=== PATIENT | female | born 1935 | race Caucasian/White ===

== ENCOUNTER 2023-02-06 06:27 | Inpatient (IN) | payer OTHER ==
[2023-02-06 06:58] LABS: #Eosinphils 0.2 thou/uL (0.0-0.7); #Monocytes 0.5 thou/uL (0.11-0.59); %Basophils 0.8 % (0.0-1.0); %Eosinophils 3.1 % (0.0-10.0); %Lymphocytes 26.6 % (21.0-51.0); %Neutrophils 59.1 % (42.0-75.0); Hematocrit 36.4 % (36.0-47.0); Hemoglobin 12.4 g/dL (12.0-16.0); Mean Corpuscular HGB CONC 34.1 g/dL (32.0-36.0); Mean Corpuscular Hemoglobin 32.7 pg (27.0-31.0); Platelet Count 185 10x3/uL (130-400); RBC Distribution Width 12.1 % (11.5-14.5); Red Blood Cell (RBC) Count 3.79 mill/uL (4.20-5.40); White Blood Cell (WBC) Count 5.1 10x3/uL (4.8-10.8)
[2023-02-06] MEDS ORDERED: fentaNYL 50 mcg/mL 1 mL Vial ONE ×4 (07:17→11:40)
[2023-02-06] MEDS ORDERED: Ondansetron PF 4 MG/2 ML Vial ONE ×3 (07:18→08:58)
[2023-02-06 07:23] LABS: ALT (SGPT) Less than 7 U/L (8-55); AST (SGOT) 13 U/L (5-34); Albumin 4.3 g/dL (3.4-4.8); Alkaline Phosphatase 74 U/L (40-110); Anion Gap 12 mmol/L (10-20); BUN (Urea Nitrogen) 11 mg/dL (9.8-20.1); Bilirubin, Total 0.5 mg/dL (0.2-1.2); Calc. Creatinine Clearance 0 mL/min (70-130); Calcium 10.1 mg/dL (7.8-10.44); Carbon Dioxide 28 mmol/L (23-31); Chloride 102 mmol/L (98-107); Estimated GFR 59; Globulin 2.1 g/dL (2.4-3.5); Glucose 223 mg/dL (83-110); Potassium 3.7 mmol/L (3.5-5.1); Protein, Total 6.4 g/dL (5.8-8.1); Sodium 138 mmol/L (136-145)
[2023-02-06 07:27] LABS: Troponin I Less than 0.010 ng/mL (< 0.028)
[2023-02-06 07:34] LABS: INR-International Normal Ratio 0.9; PTT 23.3 sec (22.9-36.1)
[2023-02-06] MEDS ORDERED: Ketorolac Tromethamine 30 MG/ML VIAL ONE (08:26)
[2023-02-06] MEDS ORDERED: CEFAZOLIN 2 GM in Sodium Chloride 0.9% 100 ML IVPB SCH (08:30)
[2023-02-06] MEDS ORDERED: fentaNYL PF 100 MCG/2 ML SYRINGE ONE (08:35)
[2023-02-06] MEDS ORDERED: Phenylephrine 10 MG/ML VIAL ONE (08:35)
[2023-02-06] MEDS ORDERED: Morphine 2 MG/ML VIAL ONE (08:44)
[2023-02-06] MEDS ORDERED: Sodium Chloride 0.9% 100 ML ONE (09:05)
[2023-02-06] MEDS ORDERED: CEFAZOLIN 2 GM VIAL ONE (09:05)
[2023-02-06] MEDS ORDERED: Lidocaine 1% PF 5 ML VIAL ONE (09:42)
[2023-02-06] MEDS ORDERED: PROPOFOL 200 MG/20 ML VIAL ONE (09:42)
[2023-02-06] MEDS ORDERED: ePHEDrine Sulfate 50 MG/10 ML VIAL ONE (09:42)
[2023-02-06] MEDS ORDERED: PHENYLEPHRINE-NS 100 MCG/ML 10 ML SYRINGE ONE (09:42)
[2023-02-06] MEDS ORDERED: Ondansetron HCl/PF 4 MG/2 ML Vial IVP PRN (10:36)
[2023-02-06] MEDS ORDERED: Promethazine HCl 25 MG/ML VIAL IM PRN (10:36)
[2023-02-06] MEDS ORDERED: Morphine 2 MG/ML VIAL SLOW IVP PRN (13:06)
[2023-02-06] MEDS ORDERED: Ondansetron ODT 4 MG TAB PO PRN (13:06)
[2023-02-06] MEDS ORDERED: Ipratropium/Albuterol 3 ML NEB NEB PRN (13:06)
[2023-02-06] MEDS ORDERED: TETANUS, DIPHTHERIA TOX,ADULT (TDVAX) 0.5 ML VIAL IM ONE (13:06)
[2023-02-06] MEDS ORDERED: Acetaminophen 325 MG TAB PO SCH (13:30)
[2023-02-06] MEDS: traMADol HCl 50 MG TAB PO PRN ×2 (13:53→21:58)
[2023-02-06] MEDS: CEFAZOLIN 2 GM in Sodium Chloride 0.9% 100 ML IVPB SCH ×2 (13:55→22:00)
[2023-02-06] MEDS: Acetaminophen 325 MG TAB PO SCH (17:06)
[2023-02-06] MEDS ORDERED: Acetaminophen 325 MG TAB ONE (17:10)
[2023-02-06 20:14] LABS: Bacteria/HPF None Seen HPF (None Seen); Bilirubin Negative (Negative); Blood, Urine Negative (Negative); CAUTI Indications for Culture Immunosuppressed; Calcium Oxalate Crystals 2+ HPF (None Seen); Clarity Clear (Clear); Glucose, Urine (Dipstick) 200 mg/dL (Negative); Ketone, Urine 20 mg/dL (Negative); Leukocyte Negative Leu/uL (Negative); Nitrite Negative (Negative); Protein, Urine (Dipstick) 50 mg/dL (Neg-Trace); RBC/HPF 0-3 HPF (0-3); Specific Gravity, Urine 1.032 (1.002-1.036); Squamous Epithelial 0-3 HPF (0-3); Urobilinogen Normal mg/dL (Less than 2); pH, Urine 5.5 (5.0-9.0)
[2023-02-06 20:19] LABS: Urine Culture Reflex Yes Yes
[2023-02-07] MEDS: Acetaminophen 325 MG TAB PO SCH ×2 (00:06→06:01)
[2023-02-07 04:35] LABS: #Monocytes 1.3 thou/uL (0.11-0.59); #Neutrophils 8.1 thou/uL (1.40-6.50); %Basophils 0.4 % (0.0-1.0); %Eosinophils 0.1 % (0.0-10.0); %Monocytes 11.8 % (0.0-10.0); %Neutrophils 73.3 % (42.0-75.0); Mean Corpuscular HGB CONC 32.7 g/dL (32.0-36.0); Mean Corpuscular Hemoglobin 32.6 pg (27.0-31.0); Mean Platelet Volume 10.5 fL (7.4-10.4); Platelet Count 175 10x3/uL (130-400); RBC Distribution Width 12.8 % (11.5-14.5); Red Blood Cell (RBC) Count 2.58 mill/uL (4.20-5.40)
[2023-02-07 04:41] LABS: Hematocrit 25.7 % (36.0-47.0); Mean Corpuscular Volume 99.6 fl (78.0-98.0)
[2023-02-07 04:42] LABS: Hemoglobin 8.4 g/dL (12.0-16.0)
[2023-02-07 05:07] LABS: Anion Gap 15 mmol/L (10-20); BUN (Urea Nitrogen) 28 mg/dL (9.8-20.1); Calc. Creatinine Clearance 0 mL/min (70-130); Carbon Dioxide 28 mmol/L (23-31); Chloride 99 mmol/L (98-107); Estimated GFR 27; Glucose 230 mg/dL (83-110); Potassium 4.5 mmol/L (3.5-5.1); Sodium 137 mmol/L (136-145)
[2023-02-07] MEDS: traMADol HCl 50 MG TAB PO PRN (06:00)
[2023-02-07] MEDS ORDERED: traMADol HCl 50 MG TAB PO PRN (08:06)
[2023-02-07] MEDS ORDERED: Ipratropium/Albuterol 3 ML NEB NEB PRN (08:08)
[2023-02-07] MEDS: Sodium Chloride 0.9% 1,000 ML IV SCH (09:00)
[2023-02-07] MEDS: Pyridostigmine Bromide IR 60 MG TAB PO SCH ×2 (10:36→22:21)
[2023-02-07] MEDS: Metoclopramide HCl 10 MG TAB PO SCH ×4 (10:36→22:21)
[2023-02-07] MEDS: Acetaminophen 500 MG TAB PO SCH ×2 (12:01→18:05)
[2023-02-07] MEDS: traMADol HCl 50 MG TAB PO SCH ×2 (13:40→22:22)
[2023-02-07] MEDS: Ferrous Sulfate 325 MG TAB PO SCH (18:04)
[2023-02-07 18:30] LABS: Anion Gap 13 mmol/L (10-20); BUN (Urea Nitrogen) 41 mg/dL (9.8-20.1); Calc. Creatinine Clearance 0 mL/min (70-130); Calcium 9.1 mg/dL (7.8-10.44); Carbon Dioxide 27 mmol/L (23-31); Chloride 98 mmol/L (98-107); Estimated GFR 21; Glucose 238 mg/dL (83-110); Potassium 3.9 mmol/L (3.5-5.1); Sodium 134 mmol/L (136-145)
[2023-02-07] MEDS: Ascorbic Acid 500 mg Chewable Tablet PO SCH (22:21)
[2023-02-07] MEDS: Aspirin 81 mg Enteric Coated Tablet PO SCH (22:21)
[2023-02-08] MEDS ORDERED: Acetaminophen 325 MG TAB PO SCH (00:15)
[2023-02-08] MEDS ORDERED: Acetaminophen/Codeine 30-300mg Tablet PO SCH (00:15)
[2023-02-08] MEDS: Acetaminophen 500 MG TAB PO SCH (01:23)
[2023-02-08] MEDS: Acetaminophen/Codeine 30-300mg Tablet PO SCH ×3 (05:09→17:54)
[2023-02-08] MEDS: Acetaminophen 325 MG TAB PO SCH ×3 (05:10→17:54)
[2023-02-08] MEDS: Sodium Chloride 0.9% 1,000 ML IV SCH ×2 (05:12)
[2023-02-08 06:09] LABS: #Eosinphils 0.1 thou/uL (0.0-0.7); #Monocytes 1.1 thou/uL (0.11-0.59); #Neutrophils 5.1 thou/uL (1.40-6.50); %Basophils 0.3 % (0.0-1.0); %Eosinophils 1.7 % (0.0-10.0); %Lymphocytes 18.5 % (21.0-51.0); %Neutrophils 65.1 % (42.0-75.0); Hematocrit 18.4 % (36.0-47.0); Mean Corpuscular HGB CONC 32.6 g/dL (32.0-36.0); Mean Corpuscular Hemoglobin 32.4 pg (27.0-31.0); Mean Corpuscular Volume 99.5 fl (78.0-98.0); Mean Platelet Volume 11.5 fL (7.4-10.4); Platelet Count 125 10x3/uL (130-400); RBC Distribution Width 12.8 % (11.5-14.5); Red Blood Cell (RBC) Count 1.85 mill/uL (4.20-5.40); White Blood Cell (WBC) Count 7.8 10x3/uL (4.8-10.8)
[2023-02-08 06:30] LABS: Anion Gap 12 mmol/L (10-20); BUN (Urea Nitrogen) 36 mg/dL (9.8-20.1); Calc. Creatinine Clearance 0 mL/min (70-130); Calcium 8.9 mg/dL (7.8-10.44); Carbon Dioxide 25 mmol/L (23-31); Chloride 103 mmol/L (98-107); Estimated GFR 43; Glucose 148 mg/dL (83-110); Magnesium 1.8 mg/dL (1.6-2.6); Phosphorus 2.6 mg/dL (2.3-4.7); Potassium 3.6 mmol/L (3.5-5.1); Sodium 136 mmol/L (136-145)
[2023-02-08] MEDS: Ferrous Sulfate 325 MG TAB PO SCH ×2 (08:45→16:31)
[2023-02-08] MEDS: Ascorbic Acid 500 mg Chewable Tablet PO SCH ×2 (08:45→20:12)
[2023-02-08] MEDS: Metoclopramide HCl 10 MG TAB PO SCH ×4 (08:45→20:13)
[2023-02-08] MEDS: Aspirin 81 mg Enteric Coated Tablet PO SCH ×2 (08:45→20:12)
[2023-02-08] MEDS: Pyridostigmine Bromide IR 60 MG TAB PO SCH ×2 (08:46→20:13)
[2023-02-08] MEDS ORDERED: Potassium Phosphate 30 MMOL in Sodium Chloride 0.9% 250 ML 250 ML IVPB SCH (09:00)
[2023-02-08] MEDS ORDERED: Magnesium 2 GM/50 ML(in water) 2 GM in Premix Bag 1 BAG IVPB SCH (09:00)
[2023-02-08] MEDS ORDERED: Morphine 2 MG/ML VIAL SLOW IVP SCH ×2 (10:13→22:00)
[2023-02-08] MEDS ORDERED: CeleCOXIB 100 MG CAP PO PRN (10:14)
[2023-02-08] MEDS: Gabapentin 100 MG CAP PO SCH ×2 (16:30→20:13)
[2023-02-08 16:42] LABS: #Eosinphils 0.1 thou/uL (0.0-0.7); #Monocytes 1.2 thou/uL (0.11-0.59); #Neutrophils 6.4 thou/uL (1.40-6.50); %Basophils 0.4 % (0.0-1.0); %Eosinophils 1.1 % (0.0-10.0); %Lymphocytes 16.1 % (21.0-51.0); %Monocytes 12.5 % (0.0-10.0); %Neutrophils 69.1 % (42.0-75.0); Hematocrit 22.9 % (36.0-47.0); Hemoglobin 7.5 g/dL (12.0-16.0); Mean Corpuscular HGB CONC 32.8 g/dL (32.0-36.0); Mean Corpuscular Hemoglobin 30.2 pg (27.0-31.0); Mean Corpuscular Volume 92.3 fl (78.0-98.0); Mean Platelet Volume 9.7 fL (7.4-10.4); Platelet Count 125 10x3/uL (130-400); RBC Distribution Width 17.2 % (11.5-14.5); Red Blood Cell (RBC) Count 2.48 mill/uL (4.20-5.40); White Blood Cell (WBC) Count 9.3 10x3/uL (4.8-10.8)
[2023-02-08] MEDS ORDERED: cefTRIAXone\\ROCEPHIN 1 GM in Sodium Chloride 0.9% 100 ML IVPB SCH (17:00)
[2023-02-08] MEDS ORDERED: Morphine 2 MG/ML VIAL SLOW IVP PRN (22:00)
[2023-02-08 22:17] LABS: Hematocrit 27.1 % (36.0-47.0); Hemoglobin 9.2 g/dL (12.0-16.0)
[2023-02-08] MEDS ORDERED: Furosemide 20 MG/2 ML VIAL SLOW IVP SCH (23:45)
[2023-02-09] MEDS: Acetaminophen 325 MG TAB PO SCH ×5 (00:16→23:29)
[2023-02-09] MEDS: Acetaminophen/Codeine 30-300mg Tablet PO SCH ×5 (00:17→23:29)
[2023-02-09 08:36] LABS: ALT (SGPT) Less than 7 U/L (8-55); AST (SGOT) 17 U/L (5-34); Albumin 3.9 g/dL (3.4-4.8); Alkaline Phosphatase 50 U/L (40-110); Anion Gap 12 mmol/L (10-20); BUN (Urea Nitrogen) 23 mg/dL (9.8-20.1); Bilirubin, Total 0.6 mg/dL (0.2-1.2); Calc. Creatinine Clearance 0 mL/min (70-130); Calcium 9.4 mg/dL (7.8-10.44); Carbon Dioxide 27 mmol/L (23-31); Chloride 103 mmol/L (98-107); Estimated GFR 62; Globulin 1.7 g/dL (2.4-3.5); Glucose 170 mg/dL (83-110); Potassium 4.3 mmol/L (3.5-5.1); Protein, Total 5.6 g/dL (5.8-8.1); Sodium 138 mmol/L (136-145)
[2023-02-09 08:42] LABS: #Eosinphils 0.1 thou/uL (0.0-0.7); #Monocytes 0.9 thou/uL (0.11-0.59); #Neutrophils 5.3 thou/uL (1.40-6.50); %Basophils 0.5 % (0.0-1.0); %Eosinophils 1.7 % (0.0-10.0); %Lymphocytes 17.8 % (21.0-51.0); %Monocytes 11.6 % (0.0-10.0); Hematocrit 27.7 % (36.0-47.0); Hemoglobin 9.3 g/dL (12.0-16.0); Mean Corpuscular HGB CONC 33.6 g/dL (32.0-36.0); Mean Corpuscular Hemoglobin 30.8 pg (27.0-31.0); Mean Corpuscular Volume 91.7 fl (78.0-98.0); Mean Platelet Volume 10.2 fL (7.4-10.4); Platelet Count 133 10x3/uL (130-400); Red Blood Cell (RBC) Count 3.02 mill/uL (4.20-5.40); White Blood Cell (WBC) Count 7.7 10x3/uL (4.8-10.8)
[2023-02-09] MEDS ORDERED: FLU VACC QS2023(65UP)/MF59C/PF 60 MCG/0.5 ML SYRINGE IM ONE (09:00)
[2023-02-09] MEDS: Amlodipine 5 MG TAB PO SCH (09:12)
[2023-02-09] MEDS: Gabapentin 100 MG CAP PO SCH ×3 (09:12→21:48)
[2023-02-09] MEDS: Carvedilol 6.25 MG TAB PO SCH (09:12)
[2023-02-09] MEDS: Aspirin 81 mg Enteric Coated Tablet PO SCH ×2 (09:13→21:48)
[2023-02-09] MEDS: Ferrous Sulfate 325 MG TAB PO SCH ×2 (09:13→09:59)
[2023-02-09] MEDS: Metoclopramide HCl 10 MG TAB PO SCH ×4 (09:13→21:49)
[2023-02-09] MEDS: Ascorbic Acid 500 mg Chewable Tablet PO SCH ×2 (09:13→21:48)
[2023-02-09] MEDS: Pyridostigmine Bromide IR 60 MG TAB PO SCH ×2 (09:13→21:48)
[2023-02-09] MEDS: LevoFLOXacin 500 MG TAB PO SCH (09:17)
[2023-02-09] MEDS ORDERED: CeleCOXIB 100 MG CAP PO SCH (09:45)
[2023-02-09] MEDS: CeleCOXIB 100 MG CAP PO SCH (21:49)
[2023-02-10 03:37] VITALS: TEMP 97.7
[2023-02-10] MEDS: Acetaminophen/Codeine 30-300mg Tablet PO SCH (05:34)
[2023-02-10] MEDS: Acetaminophen 325 MG TAB PO SCH ×3 (05:35→12:16)
[2023-02-10 06:32] LABS: #Eosinphils 0.2 thou/uL (0.0-0.7); #Monocytes 0.8 thou/uL (0.11-0.59); #Neutrophils 4.1 thou/uL (1.40-6.50); %Basophils 0.5 % (0.0-1.0); %Eosinophils 3.6 % (0.0-10.0); %Lymphocytes 18.4 % (21.0-51.0); %Neutrophils 64.9 % (42.0-75.0); Hematocrit 26.3 % (36.0-47.0); Hemoglobin 8.9 g/dL (12.0-16.0); Mean Corpuscular HGB CONC 33.8 g/dL (32.0-36.0); Mean Corpuscular Hemoglobin 31.7 pg (27.0-31.0); Mean Corpuscular Volume 93.6 fl (78.0-98.0); Mean Platelet Volume 9.9 fL (7.4-10.4); Platelet Count 137 10x3/uL (130-400); RBC Distribution Width 16.5 % (11.5-14.5); Red Blood Cell (RBC) Count 2.81 mill/uL (4.20-5.40); White Blood Cell (WBC) Count 6.3 10x3/uL (4.8-10.8)
[2023-02-10] MEDS: CeleCOXIB 100 MG CAP PO SCH (08:57)
[2023-02-10] MEDS: Ascorbic Acid 500 mg Chewable Tablet PO SCH (08:58)
[2023-02-10] MEDS: Metoclopramide HCl 10 MG TAB PO SCH ×2 (08:58→12:16)
[2023-02-10] MEDS: Pyridostigmine Bromide IR 60 MG TAB PO SCH (08:58)
[2023-02-10] MEDS: LevoFLOXacin 500 MG TAB PO SCH (08:58)
[2023-02-10] MEDS: Aspirin 81 mg Enteric Coated Tablet PO SCH (08:58)
[2023-02-10] MEDS: Gabapentin 100 MG CAP PO SCH (08:58)
[2023-02-10] MEDS: Amlodipine 5 MG TAB PO SCH (08:59)
[2023-02-10] MEDS: Carvedilol 6.25 MG TAB PO SCH (08:59)
[2023-02-10] MEDS: Ferrous Sulfate 325 MG TAB PO SCH (08:59)
[2023-02-10] MEDS ORDERED: Senokot S 8.6-50 MG TAB PO SCH (09:00)
[2023-02-10] MEDS ORDERED: Polyethylene Glycol 3350 17 GM Packet PO SCH (09:00)
[2023-02-10] MEDS ORDERED: Scopolamine 1.5 mg/72 hour Patch TD SCH (09:45)
[2023-02-10 12:16] VITALS: BP 129/63
== END 2023-02-10 13:15 | DRG 481 ==
LOC: ERS 06:27 → SDC/OP 08:36 → SURG B 12:16
PROVIDERS: ADMIT Surgery; ATTEND Surgery
PROC: 0QS606Z Reposition Right Upper Femur with Intramedullary Internal Fixation Device, Open Approach (ICD-10-PCS; principal; 2023-02-06)
PROC: 30233N1 Transfusion of Nonautologous Red Blood Cells into Peripheral Vein, Percutaneous Approach (ICD-10-PCS; 2023-02-08)
DX: S72.141A Displaced intertrochanteric fracture of right femur, initial encounter for closed fracture (principal); D62 Acute posthemorrhagic anemia; N17.9 Acute kidney failure, unspecified; N39.0 Urinary tract infection, site not specified; Z91.011 Allergy to milk products; W01.0XXA Fall on same level from slipping, tripping and stumbling without subsequent striking against object, initial encounter; Y92.121 Bathroom in nursing home as the place of occurrence of the external cause; E11.9 Type 2 diabetes mellitus without complications; E55.9 Vitamin D deficiency, unspecified; I10 Essential (primary) hypertension; Z87.01 Personal history of pneumonia (recurrent); G70.00 Myasthenia gravis without (acute) exacerbation; Z87.891 Personal history of nicotine dependence; E86.0 Dehydration
CPT/HCPCS: 36415; 36430; 70450; 71045; 72125; 72170; 72192; 74022; 80048; 80053; 81001; 83605; 83735; 83880; 84100; 84484; 85025; 85610; 85730; 86850; 86900; 86901; 87077; 87086; 87186; 93005; 96374; 96375; C1713; G0390; J0696; J1885; J1940; J2272; J2370; J2405; J2704; J3010; J3475; J3490; J7050; P9016; P9045

== ENCOUNTER 2023-05-07 17:15 | Emergency (ER) | payer OTHER ==
[2023-05-07 17:48] LABS: #Eosinphils 0.1 thou/uL (0.0-0.7); #Neutrophils 7.4 thou/uL (1.40-6.50); %Basophils 0.2 % (0.0-1.0); %Eosinophils 1.2 % (0.0-10.0); %Lymphocytes 15.9 % (21.0-51.0); %Monocytes 9.5 % (0.0-10.0); %Neutrophils 72.8 % (42.0-75.0); Hematocrit 41.8 % (36.0-47.0); Hemoglobin 14.2 g/dL (12.0-16.0); Mean Corpuscular Hemoglobin 32.8 pg (27.0-31.0); Mean Corpuscular Volume 96.5 fl (78.0-98.0); Mean Platelet Volume 10.6 fL (7.4-10.4); Platelet Count 303 10x3/uL (130-400); RBC Distribution Width 11.9 % (11.5-14.5); Red Blood Cell (RBC) Count 4.33 mill/uL (4.20-5.40); White Blood Cell (WBC) Count 10.2 10x3/uL (4.8-10.8)
[2023-05-07 18:10] LABS: ALT (SGPT) 18 U/L (8-55); AST (SGOT) 34 U/L (5-34); Albumin 4.1 g/dL (3.4-4.8); Alkaline Phosphatase 81 U/L (40-110); Anion Gap 18 mmol/L (10-20); BUN (Urea Nitrogen) 39 mg/dL (9.8-20.1); Bilirubin, Total 0.6 mg/dL (0.2-1.2); Calc. Creatinine Clearance 0 mL/min (70-130); Calcium 10.7 mg/dL (7.8-10.44); Carbon Dioxide 25 mmol/L (23-31); Chloride 109 mmol/L (98-107); Estimated GFR 64; Globulin 3.2 g/dL (2.4-3.5); Glucose 149 mg/dL (83-110); Potassium 3.8 mmol/L (3.5-5.1); Protein, Total 7.3 g/dL (5.8-8.1); Sodium 148 mmol/L (136-145)
[2023-05-07 18:15] LABS: Troponin I Less than 0.010 ng/mL (< 0.028)
[2023-05-07 18:23] LABS: Bacteria/HPF 4+ HPF (None Seen); Bilirubin Negative (Negative); Blood, Urine Negative (Negative); CAUTI Indications for Culture Alt mental st,lethar; Clarity Turbid (Clear); Glucose, Urine (Dipstick) Normal (Negative); Ketone, Urine 10 mg/dL (Negative); Leukocyte 500 Leu/uL (Negative); Nitrite Negative (Negative); Protein, Urine (Dipstick) 30 mg/dL (Neg-Trace); RBC/HPF 0-3 HPF (0-3); Specific Gravity, Urine 1.029 (1.002-1.036); Squamous Epithelial 0-3 HPF (0-3); WBC/HPF Greater than 50 HPF (0-3); pH, Urine 5.5 (5.0-9.0)
[2023-05-07 18:24] LABS: Urine Culture Reflex Yes Yes
[2023-05-07] MEDS ORDERED: Sodium Chloride 0.9% 100 ML ONE (18:52)
[2023-05-07] MEDS ORDERED: cefTRIAXone (ROCEPHIN) 1 GM VIAL ONE (18:52)
== END 2023-05-07 22:05 ==
LOC: ERS 17:15
DX: N30.00 Acute cystitis without hematuria (principal); E11.9 Type 2 diabetes mellitus without complications; I10 Essential (primary) hypertension; Z87.891 Personal history of nicotine dependence
CPT/HCPCS: 51701; 70450; 71045; 81001; 83605; 83880; 87077; 87086; 87186; 93005; 96365; J0696; J3490

== ENCOUNTER 2023-05-13 07:39 | Inpatient (IN) | payer OTHER ==
[2023-05-13] MEDS ORDERED: Ondansetron PF 4 MG/2 ML Vial ONE (08:29)
[2023-05-13 08:32] LABS: #Basophils 0.1 thou/uL (0.0-0.2); #Eosinphils 0.3 thou/uL (0.0-0.7); #Monocytes 1.2 thou/uL (0.11-0.59); #Neutrophils 13.5 thou/uL (1.40-6.50); %Basophils 0.4 % (0.0-1.0); %Eosinophils 1.8 % (0.0-10.0); %Lymphocytes 7.9 % (21.0-51.0); %Monocytes 7.1 % (0.0-10.0); %Neutrophils 82.4 % (42.0-75.0); Hematocrit 47.2 % (36.0-47.0); Hemoglobin 15.5 g/dL (12.0-16.0); Mean Corpuscular HGB CONC 32.8 g/dL (32.0-36.0); Mean Corpuscular Hemoglobin 32.8 pg (27.0-31.0); Mean Corpuscular Volume 99.8 fl (78.0-98.0); Mean Platelet Volume 10.8 fL (7.4-10.4); Platelet Count 343 10x3/uL (130-400); RBC Distribution Width 12.4 % (11.5-14.5); Red Blood Cell (RBC) Count 4.73 mill/uL (4.20-5.40); White Blood Cell (WBC) Count 16.3 10x3/uL (4.8-10.8)
[2023-05-13 08:39] LABS: Actual Bicarbonate (HCO3v) 23.6 mEq/L (22-28); Base Excess -1.9 mEq/L (-2.0 to +3.0); Calcium, Ionized (venous) 1.33 mmol/L (1.16-1.32); Chloride (VBG) 116 mmol/L (98-106); Hematocrit-VBG 48 % (36.0-47.0); Hemoglobin (Hb) 16.4 g/dL (11.7-16.1); Potassium (VBG) 4.69 mmol/L (3.70-5.30); pH (venous) 7.358 (7.32-7.43)
[2023-05-13 08:41] LABS: Sodium 157 mmol/L (133-146)
[2023-05-13 08:56] LABS: ALT (SGPT) 11 U/L (8-55); AST (SGOT) 13 U/L (5-34); Alkaline Phosphatase 78 U/L (40-110); Anion Gap 20 mmol/L (10-20); BUN (Urea Nitrogen) 60 mg/dL (9.8-20.1); Bilirubin, Total 0.6 mg/dL (0.2-1.2); Calc. Creatinine Clearance 0 mL/min (70-130); Calcium 10.9 mg/dL (7.8-10.44); Carbon Dioxide 23 mmol/L (23-31); Chloride 117 mmol/L (98-107); Estimated GFR 24; Globulin 3.1 g/dL (2.4-3.5); Glucose 163 mg/dL (83-110); Lipase 30 U/L (8-78); Potassium 4.1 mmol/L (3.5-5.1); Protein, Total 7.1 g/dL (5.8-8.1)
[2023-05-13 08:59] LABS: Troponin I 0.056 ng/mL (< 0.028)
[2023-05-13 09:07] LABS: Sodium 156 mmol/L (136-145)
[2023-05-13] MEDS ORDERED: Sodium Chloride 0.9% 100 ML ONE (09:16)
[2023-05-13] MEDS ORDERED: cefTRIAXone (ROCEPHIN) 1 GM VIAL ONE (09:16)
[2023-05-13 10:01] LABS: Bilirubin Negative (Negative); Blood, Urine Negative (Negative); CAUTI Indications for Culture Alt mental st,lethar; Calcium Oxalate Crystals Rare HPF (None Seen); Clarity Turbid (Clear); Glucose, Urine (Dipstick) Normal (Negative); Ketone, Urine Trace mg/dL (Negative); Leukocyte 75 Leu/uL (Negative); Nitrite Negative (Negative); Protein, Urine (Dipstick) 30 mg/dL (Neg-Trace); Specific Gravity, Urine 1.026 (1.002-1.036); Squamous Epithelial 21-50 HPF (0-3); Urobilinogen Normal mg/dL (Less than 2); WBC/HPF 21-50 HPF (0-3)
[2023-05-13 10:02] LABS: Bacteria/HPF 1+ HPF (None Seen); Urine Culture Reflex Yes Yes
[2023-05-13] MEDS ORDERED: Acetaminophen 325 MG TAB PO PRN (10:46)
[2023-05-13] MEDS ORDERED: Dextrose 5% in Water 1,000 ML IV PRN (10:46)
[2023-05-13] MEDS ORDERED: Dextrose 50% Abboject 50 ML SYRINGE SLOW IVP PRN (10:46)
[2023-05-13] MEDS ORDERED: hydrALAZINE 20 MG/ML VIAL SLOW IVP PRN (10:46)
[2023-05-13] MEDS ORDERED: Glucagon 1 MG/ML KIT IM PRN (10:46)
[2023-05-13] MEDS ORDERED: Dextrose 5% in Water 1,000 ML IV SCH ×2 (10:46→17:40)
[2023-05-13 15:36] LABS: Critical Call Chemistry NUR.RJ4@1536; Sodium 153 mmol/L (136-145)
[2023-05-13] MEDS: HumaLOG 300 UNITS/3 ML VIAL SC PRN (16:58)
[2023-05-13] MEDS: Dextrose 5% in Water 1,000 ML IV SCH (17:53)
[2023-05-14 05:00] LABS: #Basophils 0.1 thou/uL (0.0-0.2); #Eosinphils 0.3 thou/uL (0.0-0.7); #Monocytes 1.3 thou/uL (0.11-0.59); #Neutrophils 13.4 thou/uL (1.40-6.50); %Basophils 0.3 % (0.0-1.0); %Eosinophils 1.6 % (0.0-10.0); %Lymphocytes 5.4 % (21.0-51.0); %Monocytes 7.9 % (0.0-10.0); %Neutrophils 84.4 % (42.0-75.0); Mean Corpuscular HGB CONC 32.1 g/dL (32.0-36.0); Mean Platelet Volume 11.3 fL (7.4-10.4); RBC Distribution Width 12.8 % (11.5-14.5); Red Blood Cell (RBC) Count 3.55 mill/uL (4.20-5.40); White Blood Cell (WBC) Count 15.9 10x3/uL (4.8-10.8)
[2023-05-14 05:12] LABS: Hematocrit 36.5 % (36.0-47.0); Hemoglobin 11.7 g/dL (12.0-16.0); Mean Corpuscular Volume 102.8 fl (78.0-98.0); Platelet Count 228 10x3/uL (130-400)
[2023-05-14 05:21] LABS: Anion Gap 9 mmol/L (10-20); BUN (Urea Nitrogen) 49 mg/dL (9.8-20.1); Calc. Creatinine Clearance 24 mL/min (70-130); Calcium 9.8 mg/dL (7.8-10.44); Carbon Dioxide 26 mmol/L (23-31); Chloride 121 mmol/L (98-107); Estimated GFR 43; Glucose 195 mg/dL (83-110); Potassium 3.4 mmol/L (3.5-5.1)
[2023-05-14 05:26] LABS: Critical Call Chemistry NUR.JMQ@0526; Sodium 153 mmol/L (136-145)
[2023-05-14] MEDS: HumaLOG 300 UNITS/3 ML VIAL SC PRN ×2 (05:56→21:24)
[2023-05-14] MEDS: Dextrose 5% in Water 1,000 ML IV SCH (05:57)
[2023-05-14] MEDS: cefTRIAXone\\ROCEPHIN 1 GM in Sodium Chloride 0.9% 100 ML IVPB SCH (08:39)
[2023-05-14] MEDS ORDERED: Dextrose 5% in Water 1,000 ML IV SCH (14:30)
[2023-05-14] MEDS: D5W-AA 4.25% with LYTES 1,000 ML IV SCH (17:57)
[2023-05-15] MEDS ORDERED: Metoprolol Tartrate 5 MG (5 mL) VIAL IVP SCH (05:15)
[2023-05-15 05:36] LABS: Anion Gap 13 mmol/L (10-20); BUN (Urea Nitrogen) 41 mg/dL (9.8-20.1); Calc. Creatinine Clearance 29 mL/min (70-130); Calcium 9.9 mg/dL (7.8-10.44); Carbon Dioxide 21 mmol/L (23-31); Chloride 117 mmol/L (98-107); Estimated GFR 55; Glucose 284 mg/dL (83-110); Potassium 3.9 mmol/L (3.5-5.1); Sodium 147 mmol/L (136-145)
[2023-05-15] MEDS: HumaLOG 300 UNITS/3 ML VIAL SC PRN ×3 (06:24→22:22)
[2023-05-15] MEDS: D5W-AA 4.25% with LYTES 1,000 ML IV SCH (06:48)
[2023-05-15] MEDS: cefTRIAXone\\ROCEPHIN 1 GM in Sodium Chloride 0.9% 100 ML IVPB SCH (08:25)
[2023-05-15] MEDS: Dextrose 5% in Water 1,000 ML IV SCH (08:27)
[2023-05-15] MEDS: Metoprolol Tartrate 5 MG (5 mL) VIAL IVP PRN ×2 (10:49→22:29)
[2023-05-15] MEDS: Linezolid 600 MG in Premix 1 BAG IVPB SCH (13:12)
[2023-05-16] MEDS: Linezolid 600 MG in Premix 1 BAG IVPB SCH ×2 (00:02→17:12)
[2023-05-16] MEDS: D5W-AA 4.25% with LYTES 1,000 ML IV SCH ×3 (00:05→22:35)
[2023-05-16] MEDS: Dextrose 5% in Water 1,000 ML IV SCH (03:11)
[2023-05-16] MEDS: Metoprolol Tartrate 5 MG (5 mL) VIAL IVP PRN (05:01)
[2023-05-16 05:54] LABS: ALT (SGPT) 24 U/L (8-55); AST (SGOT) 31 U/L (5-34); Albumin 2.9 g/dL (3.4-4.8); Alkaline Phosphatase 86 U/L (40-110); Anion Gap 14 mmol/L (10-20); BUN (Urea Nitrogen) 32 mg/dL (9.8-20.1); Bilirubin, Total 0.5 mg/dL (0.2-1.2); Calc. Creatinine Clearance 38 mL/min (70-130); Calcium 9.8 mg/dL (7.8-10.44); Carbon Dioxide 20 mmol/L (23-31); Chloride 114 mmol/L (98-107); Estimated GFR 73; Globulin 2.7 g/dL (2.4-3.5); Glucose 292 mg/dL (83-110); Potassium 4.1 mmol/L (3.5-5.1); Protein, Total 5.6 g/dL (5.8-8.1); Sodium 144 mmol/L (136-145)
[2023-05-16] MEDS: HumaLOG 300 UNITS/3 ML VIAL SC PRN ×3 (06:46→21:48)
[2023-05-16] MEDS ORDERED: FLU VACC QS2023(65UP)/MF59C/PF 60 MCG/0.5 ML SYRINGE IM ONE (09:00)
[2023-05-16] MEDS ORDERED: Magnesium 2 GM/50 ML(in water) 2 GM in Premix 1 BAG IVPB SCH (13:30)
[2023-05-16] MEDS ORDERED: Insulin Glargine 30 UNITS/0.3 ML VIAL SC SCH (14:00)
[2023-05-16] MEDS: Thiamine HCl 200 MG/2 ML VIAL SLOW IVP SCH (15:50)
[2023-05-16] MEDS: Metoprolol Tartrate 5 MG (5 mL) VIAL IVP SCH (18:12)
[2023-05-16 18:38] LABS: Bacteria/HPF None Seen HPF (None Seen); Bilirubin Negative (Negative); Blood, Urine Negative (Negative); Clarity Clear (Clear); Glucose, Urine (Dipstick) Greater than 1000 mg/dL (Negative); Ketone, Urine Negative (Negative); Leukocyte Negative Leu/uL (Negative); Nitrite Negative (Negative); Protein, Urine (Dipstick) 20 mg/dL (Neg-Trace); RBC/HPF 0-3 HPF (0-3); Specific Gravity, Urine 1.025 (1.002-1.036); Squamous Epithelial 0-3 HPF (0-3); Urobilinogen Normal mg/dL (Less than 2); WBC/HPF 0-3 HPF (0-3); pH, Urine 5.5 (5.0-9.0)
[2023-05-16] MEDS: Heparin 5,000 UNITS/ML VIAL SC SCH (21:25)
[2023-05-16] MEDS: Pyridostigmine Bromide IR 60 MG TAB PO SCH (21:26)
[2023-05-17] MEDS: Metoprolol Tartrate 5 MG (5 mL) VIAL IVP SCH ×4 (01:10→21:42)
[2023-05-17] MEDS: HumaLOG 300 UNITS/3 ML VIAL SC PRN (06:00)
[2023-05-17 06:50] LABS: #Eosinphils 0.1 thou/uL (0.0-0.7); #Neutrophils 8.1 thou/uL (1.40-6.50); %Basophils 0.3 % (0.0-1.0); %Eosinophils 0.8 % (0.0-10.0); %Lymphocytes 11.3 % (21.0-51.0); %Monocytes 9.5 % (0.0-10.0); %Neutrophils 77.7 % (42.0-75.0); Hematocrit 37.3 % (36.0-47.0); Hemoglobin 11.9 g/dL (12.0-16.0); Mean Corpuscular HGB CONC 31.9 g/dL (32.0-36.0); Mean Corpuscular Hemoglobin 32.8 pg (27.0-31.0); Mean Corpuscular Volume 102.8 fl (78.0-98.0); Mean Platelet Volume 12.4 fL (7.4-10.4); Platelet Count 129 10x3/uL (130-400); RBC Distribution Width 12.5 % (11.5-14.5); Red Blood Cell (RBC) Count 3.63 mill/uL (4.20-5.40); White Blood Cell (WBC) Count 10.4 10x3/uL (4.8-10.8)
[2023-05-17 07:12] LABS: Anion Gap 11 mmol/L (10-20); BUN (Urea Nitrogen) 42 mg/dL (9.8-20.1); Calc. Creatinine Clearance 40 mL/min (70-130); Calcium 9.6 mg/dL (7.8-10.44); Carbon Dioxide 21 mmol/L (23-31); Chloride 114 mmol/L (98-107); Estimated GFR 78; Glucose 204 mg/dL (83-110); Potassium 4.4 mmol/L (3.5-5.1); Sodium 142 mmol/L (136-145)
[2023-05-17] MEDS: Insulin Glargine 30 UNITS/0.3 ML VIAL SC SCH (09:39)
[2023-05-17] MEDS: Pantoprazole 40 MG VIAL IVP SCH (09:40)
[2023-05-17] MEDS: Heparin 5,000 UNITS/ML VIAL SC SCH ×2 (09:54→19:59)
[2023-05-17] MEDS: Pyridostigmine Bromide IR 60 MG TAB PO SCH ×2 (10:26→20:00)
[2023-05-17] MEDS: Thiamine HCl 200 MG/2 ML VIAL SLOW IVP SCH (14:28)
[2023-05-17] MEDS: D5W-AA 4.25% with LYTES 1,000 ML IV SCH (14:28)
[2023-05-18] MEDS: D5W-AA 4.25% with LYTES 1,000 ML IV SCH ×2 (00:21→14:55)
[2023-05-18] MEDS: Metoprolol Tartrate 5 MG (5 mL) VIAL IVP SCH ×3 (05:28→20:25)
[2023-05-18 06:15] LABS: #Eosinphils 0.3 thou/uL (0.0-0.7); #Monocytes 0.7 thou/uL (0.11-0.59); #Neutrophils 4.9 thou/uL (1.40-6.50); %Basophils 0.3 % (0.0-1.0); %Eosinophils 4.1 % (0.0-10.0); %Lymphocytes 14.1 % (21.0-51.0); %Monocytes 10.3 % (0.0-10.0); %Neutrophils 70.8 % (42.0-75.0); Hematocrit 32.3 % (36.0-47.0); Hemoglobin 10.4 g/dL (12.0-16.0); Mean Corpuscular HGB CONC 32.2 g/dL (32.0-36.0); Mean Corpuscular Hemoglobin 32.5 pg (27.0-31.0); Mean Corpuscular Volume 100.9 fl (78.0-98.0); Mean Platelet Volume 12.6 fL (7.4-10.4); Platelet Count 130 10x3/uL (130-400); RBC Distribution Width 12.4 % (11.5-14.5); White Blood Cell (WBC) Count 6.9 10x3/uL (4.8-10.8)
[2023-05-18 06:34] LABS: Anion Gap 11 mmol/L (10-20); BUN (Urea Nitrogen) 35 mg/dL (9.8-20.1); Calc. Creatinine Clearance 47 mL/min (70-130); Calcium 9.5 mg/dL (7.8-10.44); Carbon Dioxide 25 mmol/L (23-31); Chloride 111 mmol/L (98-107); Estimated GFR 86; Glucose 140 mg/dL (83-110); Magnesium 2.4 mg/dL (1.6-2.6); Potassium 4.1 mmol/L (3.5-5.1); Sodium 143 mmol/L (136-145)
[2023-05-18] MEDS: Insulin Glargine 30 UNITS/0.3 ML VIAL SC SCH (09:30)
[2023-05-18] MEDS: Pantoprazole 40 MG VIAL IVP SCH (09:31)
[2023-05-18] MEDS: Heparin 5,000 UNITS/ML VIAL SC SCH ×2 (09:33→20:20)
[2023-05-18] MEDS: Pyridostigmine Bromide IR 60 MG TAB PO SCH ×3 (11:03→20:20)
[2023-05-18] MEDS: Thiamine HCl 200 MG/2 ML VIAL SLOW IVP SCH (14:56)
[2023-05-18] MEDS ORDERED: Sodium Chloride 0.9% 500 ML IV SCH (15:00)
[2023-05-18] MEDS ORDERED: Labetalol HCl 100 MG/20 ML VIAL SLOW IVP PRN (20:55)
[2023-05-19] MEDS: Metoprolol Tartrate 5 MG (5 mL) VIAL IVP SCH ×2 (05:23→14:00)
[2023-05-19 06:39] LABS: #Eosinphils 0.2 thou/uL (0.0-0.7); #Monocytes 0.8 thou/uL (0.11-0.59); #Neutrophils 5.8 thou/uL (1.40-6.50); %Basophils 0.3 % (0.0-1.0); %Eosinophils 2.8 % (0.0-10.0); %Lymphocytes 13.6 % (21.0-51.0); %Monocytes 10.4 % (0.0-10.0); %Neutrophils 72.5 % (42.0-75.0); Hematocrit 34.7 % (36.0-47.0); Hemoglobin 11.3 g/dL (12.0-16.0); Mean Corpuscular HGB CONC 32.6 g/dL (32.0-36.0); Mean Corpuscular Hemoglobin 31.9 pg (27.0-31.0); Mean Platelet Volume 11.6 fL (7.4-10.4); Platelet Count 145 10x3/uL (130-400); RBC Distribution Width 12.2 % (11.5-14.5); Red Blood Cell (RBC) Count 3.54 mill/uL (4.20-5.40); White Blood Cell (WBC) Count 7.9 10x3/uL (4.8-10.8)
[2023-05-19 07:01] LABS: Anion Gap 13 mmol/L (10-20); BUN (Urea Nitrogen) 30 mg/dL (9.8-20.1); Calc. Creatinine Clearance 44 mL/min (70-130); Calcium 9.5 mg/dL (7.8-10.44); Carbon Dioxide 23 mmol/L (23-31); Chloride 107 mmol/L (98-107); Estimated GFR 85; Glucose 127 mg/dL (83-110); Potassium 4.4 mmol/L (3.5-5.1); Sodium 139 mmol/L (136-145)
[2023-05-19] MEDS ORDERED: Linezolid 600 MG in Premix 1 BAG IVPB SCH (08:00)
[2023-05-19] MEDS: Insulin Glargine 30 UNITS/0.3 ML VIAL SC SCH (08:56)
[2023-05-19] MEDS: Pyridostigmine Bromide IR 60 MG TAB PO SCH ×2 (08:56→20:26)
[2023-05-19] MEDS: Pantoprazole 40 MG VIAL IVP SCH (08:56)
[2023-05-19] MEDS: Heparin 5,000 UNITS/ML VIAL SC SCH ×2 (08:56→20:26)
[2023-05-19] MEDS ORDERED: Lidocaine 1% PF 5 ML VIAL ONE (10:54)
[2023-05-19] MEDS ORDERED: PROPOFOL 200 MG/20 ML VIAL ONE (10:54)
[2023-05-19] MEDS: Thiamine HCl 200 MG/2 ML VIAL SLOW IVP SCH (13:59)
[2023-05-19] MEDS ORDERED: Lactated Ringer's 1,000 ML IV SCH (18:15)
[2023-05-19] MEDS: Metoprolol Tartrate 25 MG TAB PER TUBE SCH (20:26)
[2023-05-19] MEDS: Cyanocobalamin (Vitamin B-12) 1,000 MCG TAB PER TUBE SCH (20:26)
[2023-05-20] MEDS ORDERED: Lansoprazole 15 MG/5 ML (BATCHED)UDCUP PER TUBE SCH ×2 (09:00→11:15)
[2023-05-20] MEDS: Heparin 5,000 UNITS/ML VIAL SC SCH ×2 (10:51→21:00)
[2023-05-20] MEDS: Insulin Glargine 30 UNITS/0.3 ML VIAL SC SCH ×2 (10:51→20:58)
[2023-05-20] MEDS: Aspirin Chewable 81 MG TAB PER TUBE SCH (10:51)
[2023-05-20] MEDS: Thiamine 100 MG TAB PER TUBE SCH (10:52)
[2023-05-20] MEDS: Pyridostigmine Bromide IR 60 MG TAB PO SCH ×2 (10:52→21:01)
[2023-05-20] MEDS: Metoprolol Tartrate 25 MG TAB PER TUBE SCH ×2 (10:52→21:00)
[2023-05-20] MEDS: Acetaminophen 325 MG TAB PER TUBE SCH ×3 (12:28→23:07)
[2023-05-20] MEDS: traMADol HCl 50 MG TAB PER TUBE SCH ×3 (12:30→23:05)
[2023-05-20] MEDS: HumaLOG 300 UNITS/3 ML VIAL SC PRN (12:32)
[2023-05-20] MEDS ORDERED: Ipratropium/Albuterol 3 ML NEB NEB PRN (14:29)
[2023-05-20] MEDS ORDERED: Ipratropium/Albuterol 3 ML NEB NEB SCH (14:30)
[2023-05-20] MEDS ORDERED: Piperacillin/Tazobactam 3.375 GM in Sodium Chloride 0.9% 100 ML IVPB SCH (17:15)
[2023-05-20] MEDS: Ipratropium/Albuterol 3 ML NEB NEB SCH ×2 (17:59→18:16)
[2023-05-20] MEDS: Budesonide 0.5 MG/2 ML NEB INH SCH (18:17)
[2023-05-20] MEDS: Piperacillin/Tazobactam 3.375 GM in Sodium Chloride 0.9% 100 ML IVPB SCH (20:59)
[2023-05-20] MEDS: Cyanocobalamin (Vitamin B-12) 1,000 MCG TAB PER TUBE SCH (21:00)
[2023-05-21] MEDS: Piperacillin/Tazobactam 3.375 GM in Sodium Chloride 0.9% 100 ML IVPB SCH ×3 (05:15→21:18)
[2023-05-21] MEDS: traMADol HCl 50 MG TAB PER TUBE SCH ×2 (05:16→12:16)
[2023-05-21] MEDS: Acetaminophen 325 MG TAB PER TUBE SCH ×3 (05:16→16:11)
[2023-05-21] MEDS: HumaLOG 300 UNITS/3 ML VIAL SC PRN ×2 (06:23→16:12)
[2023-05-21 06:51] LABS: Hematocrit 32.8 % (36.0-47.0); Hemoglobin 10.6 g/dL (12.0-16.0); Manual Diff?? YES; Mean Corpuscular HGB CONC 32.3 g/dL (32.0-36.0); Mean Corpuscular Hemoglobin 32.6 pg (27.0-31.0); Mean Corpuscular Volume 100.9 fl (78.0-98.0); Mean Platelet Volume 11.9 fL (7.4-10.4); Platelet Count 140 10x3/uL (130-400); Red Blood Cell (RBC) Count 3.25 mill/uL (4.20-5.40); White Blood Cell (WBC) Count 13.8 10x3/uL (4.8-10.8)
[2023-05-21 06:53] LABS: Delete Auto Diff?? YES
[2023-05-21 07:15] LABS: Anion Gap 15 mmol/L (10-20); BUN (Urea Nitrogen) 28 mg/dL (9.8-20.1); Calc. Creatinine Clearance 35 mL/min (70-130); Calcium 9.1 mg/dL (7.8-10.44); Carbon Dioxide 20 mmol/L (23-31); Chloride 110 mmol/L (98-107); Estimated GFR 67; Glucose 127 mg/dL (83-110); Magnesium 1.9 mg/dL (1.6-2.6); Potassium 4.7 mmol/L (3.5-5.1); Sodium 140 mmol/L (136-145)
[2023-05-21] MEDS: Budesonide 0.5 MG/2 ML NEB INH SCH ×2 (07:51→19:10)
[2023-05-21] MEDS: Ipratropium/Albuterol 3 ML NEB NEB SCH ×4 (07:54→19:08)
[2023-05-21 08:11] LABS: Band 26 % (5-11); CellaVision Operator ID LAB.GE; Eosinophils 1 % (0-10); Large Platelets 6.7 % (0-5); Lymphocytes 7 % (21-51); Monocytes 3 % (0-10); Neutrophil 64 % (42-75); Platelet Adequacy Comment Platelets Normal; Polychromasia SLIGHT = 2-3 cells HPF (0-2); Total Cell Count 105
[2023-05-21] MEDS: Metoprolol Tartrate 25 MG TAB PER TUBE SCH ×2 (08:38→21:19)
[2023-05-21] MEDS: Aspirin Chewable 81 MG TAB PER TUBE SCH (08:38)
[2023-05-21] MEDS: Pyridostigmine Bromide IR 60 MG TAB PO SCH ×2 (08:38→21:19)
[2023-05-21] MEDS: Thiamine 100 MG TAB PER TUBE SCH (08:38)
[2023-05-21] MEDS: Lansoprazole 15 MG/5 ML (BATCHED)UDCUP PER TUBE SCH (08:39)
[2023-05-21] MEDS: Insulin Glargine 30 UNITS/0.3 ML VIAL SC SCH ×2 (08:39→21:19)
[2023-05-21] MEDS: Heparin 5,000 UNITS/ML VIAL SC SCH ×2 (08:40→21:20)
[2023-05-21] MEDS: Lactated Ringer's 1,000 ML IV SCH (17:37)
[2023-05-21] MEDS: Cyanocobalamin (Vitamin B-12) 1,000 MCG TAB PER TUBE SCH (21:22)
[2023-05-22] MEDS: Acetaminophen 325 MG TAB PER TUBE SCH ×5 (00:28→23:30)
[2023-05-22] MEDS: Piperacillin/Tazobactam 3.375 GM in Sodium Chloride 0.9% 100 ML IVPB SCH ×3 (04:25→22:10)
[2023-05-22] MEDS: Lactated Ringer's 1,000 ML IV SCH (05:58)
[2023-05-22] MEDS: HumaLOG 300 UNITS/3 ML VIAL SC PRN ×3 (06:02→22:22)
[2023-05-22 06:21] LABS: Hemoglobin 9.6 g/dL (12.0-16.0); Manual Diff?? YES; Mean Corpuscular Hemoglobin 33.1 pg (27.0-31.0); Mean Corpuscular Volume 103.4 fl (78.0-98.0); Mean Platelet Volume 11.6 fL (7.4-10.4); Platelet Count 160 10x3/uL (130-400); RBC Distribution Width 13.2 % (11.5-14.5); White Blood Cell (WBC) Count 12.9 10x3/uL (4.8-10.8)
[2023-05-22 06:30] LABS: Delete Auto Diff?? YES
[2023-05-22 06:52] LABS: Anion Gap 9 mmol/L (10-20); BUN (Urea Nitrogen) 28 mg/dL (9.8-20.1); Calc. Creatinine Clearance 36 mL/min (70-130); Calcium 9.1 mg/dL (7.8-10.44); Carbon Dioxide 27 mmol/L (23-31); Chloride 109 mmol/L (98-107); Estimated GFR 69; Glucose 245 mg/dL (83-110); Phosphorus 2.7 mg/dL (2.3-4.7); Potassium 4.3 mmol/L (3.5-5.1); Sodium 141 mmol/L (136-145)
[2023-05-22 06:54] LABS: Band 10 % (5-11); CellaVision Operator ID LAB.GE; Eosinophils 5 % (0-10); Large Platelets 2.9 % (0-5); Lymphocytes 4 % (21-51); Macrocytosis SLIGHT = 6-15 cells HPF (0-5); Monocytes 2 % (0-10); Neutrophil 78 % (42-75); Platelet Adequacy Comment Platelets Normal; Polychromasia SLIGHT = 2-3 cells HPF (0-2); Total Cell Count 102
[2023-05-22] MEDS: Budesonide 0.5 MG/2 ML NEB INH SCH ×2 (07:30→19:35)
[2023-05-22] MEDS: Ipratropium/Albuterol 3 ML NEB NEB SCH ×4 (07:34→19:32)
[2023-05-22] MEDS: Metoprolol Tartrate 25 MG TAB PER TUBE SCH ×2 (09:18→22:10)
[2023-05-22] MEDS: Aspirin Chewable 81 MG TAB PER TUBE SCH (09:19)
[2023-05-22] MEDS: Lansoprazole 15 MG/5 ML (BATCHED)UDCUP PER TUBE SCH (09:19)
[2023-05-22] MEDS: Pyridostigmine Bromide IR 60 MG TAB PO SCH ×2 (09:19→22:10)
[2023-05-22] MEDS: Heparin 5,000 UNITS/ML VIAL SC SCH ×2 (09:19→22:09)
[2023-05-22] MEDS: Insulin Glargine 30 UNITS/0.3 ML VIAL SC SCH (09:19)
[2023-05-22] MEDS: Thiamine 100 MG TAB PER TUBE SCH (09:21)
[2023-05-22] MEDS ORDERED: Insulin Glargine 30 UNITS/0.3 ML VIAL SC SCH (21:00)
[2023-05-22] MEDS: Cyanocobalamin (Vitamin B-12) 1,000 MCG TAB PER TUBE SCH (22:10)
[2023-05-23 04:54] LABS: #Basophils 0.1 thou/uL (0.0-0.2); #Eosinphils 0.8 thou/uL (0.0-0.7); #Monocytes 0.7 thou/uL (0.11-0.59); #Neutrophils 11.1 thou/uL (1.40-6.50); %Basophils 0.4 % (0.0-1.0); %Eosinophils 5.7 % (0.0-10.0); %Lymphocytes 4.7 % (21.0-51.0); %Neutrophils 83.2 % (42.0-75.0); Hematocrit 29.3 % (36.0-47.0); Hemoglobin 9.3 g/dL (12.0-16.0); Mean Corpuscular HGB CONC 31.7 g/dL (32.0-36.0); Mean Corpuscular Hemoglobin 32.3 pg (27.0-31.0); Mean Corpuscular Volume 101.7 fl (78.0-98.0); Mean Platelet Volume 11.8 fL (7.4-10.4); Platelet Count 202 10x3/uL (130-400); RBC Distribution Width 13.3 % (11.5-14.5); Red Blood Cell (RBC) Count 2.88 mill/uL (4.20-5.40); White Blood Cell (WBC) Count 13.3 10x3/uL (4.8-10.8)
[2023-05-23 05:22] LABS: Anion Gap 12 mmol/L (10-20); BUN (Urea Nitrogen) 23 mg/dL (9.8-20.1); CRP (Inflammatory) 16.46 mg/dL (= or < 0.5); Calc. Creatinine Clearance 40 mL/min (70-130); Calcium 9.3 mg/dL (7.8-10.44); Carbon Dioxide 26 mmol/L (23-31); Chloride 108 mmol/L (98-107); Estimated GFR 78; Glucose 173 mg/dL (83-110); Potassium 4.2 mmol/L (3.5-5.1); Sodium 142 mmol/L (136-145)
[2023-05-23] MEDS: Piperacillin/Tazobactam 3.375 GM in Sodium Chloride 0.9% 100 ML IVPB SCH ×3 (07:13→22:28)
[2023-05-23] MEDS: Acetaminophen 325 MG TAB PER TUBE SCH ×4 (07:13→22:28)
[2023-05-23] MEDS: Budesonide 0.5 MG/2 ML NEB INH SCH ×2 (07:46→18:50)
[2023-05-23] MEDS: Ipratropium/Albuterol 3 ML NEB NEB SCH ×4 (07:47→18:48)
[2023-05-23] MEDS: Insulin Glargine 30 UNITS/0.3 ML VIAL SC SCH ×2 (10:52→21:31)
[2023-05-23] MEDS: Lansoprazole 15 MG/5 ML (BATCHED)UDCUP PER TUBE SCH (10:53)
[2023-05-23] MEDS: Heparin 5,000 UNITS/ML VIAL SC SCH ×2 (10:53→21:29)
[2023-05-23] MEDS: Thiamine 100 MG TAB PER TUBE SCH (10:53)
[2023-05-23] MEDS: Metoprolol Tartrate 25 MG TAB PER TUBE SCH ×2 (10:53→21:29)
[2023-05-23] MEDS: Aspirin Chewable 81 MG TAB PER TUBE SCH (10:53)
[2023-05-23] MEDS: Pyridostigmine Bromide IR 60 MG TAB PO SCH ×2 (10:53→21:29)
[2023-05-23] MEDS: Cyanocobalamin (Vitamin B-12) 1,000 MCG TAB PER TUBE SCH (21:29)
[2023-05-23] MEDS: HumaLOG 300 UNITS/3 ML VIAL SC PRN (21:31)
[2023-05-24 05:43] LABS: #Basophils 0.1 thou/uL (0.0-0.2); #Eosinphils 1.1 thou/uL (0.0-0.7); #Monocytes 0.8 thou/uL (0.11-0.59); #Neutrophils 8.4 thou/uL (1.40-6.50); %Basophils 0.4 % (0.0-1.0); %Eosinophils 9.7 % (0.0-10.0); %Lymphocytes 7.6 % (21.0-51.0); %Monocytes 6.9 % (0.0-10.0); %Neutrophils 73.6 % (42.0-75.0); Hematocrit 28.3 % (36.0-47.0); Hemoglobin 8.9 g/dL (12.0-16.0); Mean Corpuscular HGB CONC 31.4 g/dL (32.0-36.0); Mean Corpuscular Hemoglobin 31.9 pg (27.0-31.0); Mean Corpuscular Volume 101.4 fl (78.0-98.0); Mean Platelet Volume 11.1 fL (7.4-10.4); Platelet Count 216 10x3/uL (130-400); Red Blood Cell (RBC) Count 2.79 mill/uL (4.20-5.40); White Blood Cell (WBC) Count 11.4 10x3/uL (4.8-10.8)
[2023-05-24] MEDS: Piperacillin/Tazobactam 3.375 GM in Sodium Chloride 0.9% 100 ML IVPB SCH ×2 (06:06→14:55)
[2023-05-24] MEDS: Acetaminophen 325 MG TAB PER TUBE SCH ×4 (06:07→22:47)
[2023-05-24 06:09] LABS: Anion Gap 11 mmol/L (10-20); BUN (Urea Nitrogen) 19 mg/dL (9.8-20.1); Calc. Creatinine Clearance 51 mL/min (70-130); Calcium 9.1 mg/dL (7.8-10.44); Carbon Dioxide 27 mmol/L (23-31); Chloride 108 mmol/L (98-107); Estimated GFR 84; Glucose 113 mg/dL (83-110); Magnesium 1.9 mg/dL (1.6-2.6); Phosphorus 2.7 mg/dL (2.3-4.7); Potassium 4.1 mmol/L (3.5-5.1); Sodium 142 mmol/L (136-145)
[2023-05-24] MEDS: Budesonide 0.5 MG/2 ML NEB INH SCH ×2 (07:37→18:25)
[2023-05-24] MEDS: Ipratropium/Albuterol 3 ML NEB NEB SCH ×4 (07:39→18:23)
[2023-05-24] MEDS: Insulin Glargine 30 UNITS/0.3 ML VIAL SC SCH ×2 (09:36→21:07)
[2023-05-24] MEDS: Heparin 5,000 UNITS/ML VIAL SC SCH ×2 (09:36→21:06)
[2023-05-24] MEDS: Thiamine 100 MG TAB PER TUBE SCH (09:36)
[2023-05-24] MEDS: Aspirin Chewable 81 MG TAB PER TUBE SCH (09:36)
[2023-05-24] MEDS: Metoprolol Tartrate 25 MG TAB PER TUBE SCH ×2 (09:36→21:06)
[2023-05-24] MEDS: Pyridostigmine Bromide IR 60 MG TAB PO SCH ×2 (09:36→21:06)
[2023-05-24] MEDS: Lansoprazole 15 MG/5 ML (BATCHED)UDCUP PER TUBE SCH (09:47)
[2023-05-24] MEDS: Amoxicillin/Potassium Clav 875 MG TAB PER TUBE SCH (21:06)
[2023-05-24] MEDS: HumaLOG 300 UNITS/3 ML VIAL SC PRN (21:07)
[2023-05-24] MEDS: Cyanocobalamin (Vitamin B-12) 1,000 MCG TAB PER TUBE SCH (21:09)
[2023-05-25 05:26] LABS: #Eosinphils 0.9 thou/uL (0.0-0.7); #Monocytes 0.8 thou/uL (0.11-0.59); %Basophils 0.4 % (0.0-1.0); %Eosinophils 8.2 % (0.0-10.0); %Lymphocytes 8.5 % (21.0-51.0); %Monocytes 7.5 % (0.0-10.0); %Neutrophils 73.2 % (42.0-75.0); Hemoglobin 8.7 g/dL (12.0-16.0); Mean Corpuscular HGB CONC 32.2 g/dL (32.0-36.0); Mean Corpuscular Hemoglobin 32.6 pg (27.0-31.0); Mean Corpuscular Volume 101.1 fl (78.0-98.0); Mean Platelet Volume 11.3 fL (7.4-10.4); Platelet Count 250 10x3/uL (130-400); RBC Distribution Width 13.1 % (11.5-14.5); Red Blood Cell (RBC) Count 2.67 mill/uL (4.20-5.40); White Blood Cell (WBC) Count 10.9 10x3/uL (4.8-10.8)
[2023-05-25 05:50] LABS: Anion Gap 8 mmol/L (10-20); BUN (Urea Nitrogen) 17 mg/dL (9.8-20.1); Calc. Creatinine Clearance 53 mL/min (70-130); Calcium 9.1 mg/dL (7.8-10.44); Carbon Dioxide 29 mmol/L (23-31); Chloride 106 mmol/L (98-107); Estimated GFR 85; Glucose 97 mg/dL (83-110); Magnesium 1.9 mg/dL (1.6-2.6); Phosphorus 2.8 mg/dL (2.3-4.7); Potassium 4.1 mmol/L (3.5-5.1); Sodium 139 mmol/L (136-145)
[2023-05-25] MEDS: Acetaminophen 325 MG TAB PER TUBE SCH ×2 (06:38→11:25)
[2023-05-25] MEDS: Budesonide 0.5 MG/2 ML NEB INH SCH (07:23)
[2023-05-25] MEDS: Ipratropium/Albuterol 3 ML NEB NEB SCH ×3 (07:26→12:54)
[2023-05-25] MEDS: Amoxicillin/Potassium Clav 875 MG TAB PER TUBE SCH (09:28)
[2023-05-25] MEDS: Insulin Glargine 30 UNITS/0.3 ML VIAL SC SCH (09:28)
[2023-05-25] MEDS: Pyridostigmine Bromide IR 60 MG TAB PO SCH (09:28)
[2023-05-25] MEDS: Heparin 5,000 UNITS/ML VIAL SC SCH (09:28)
[2023-05-25] MEDS: Aspirin Chewable 81 MG TAB PER TUBE SCH (09:28)
[2023-05-25] MEDS: Metoprolol Tartrate 25 MG TAB PER TUBE SCH (09:28)
[2023-05-25] MEDS: Thiamine 100 MG TAB PER TUBE SCH (09:28)
[2023-05-25] MEDS: Lansoprazole 15 MG/5 ML (BATCHED)UDCUP PER TUBE SCH (09:29)
[2023-05-25 09:49] VITALS: BMI 17.9
[2023-05-25 15:35] VITALS: BP 162/72; TEMP 97.3
== END 2023-05-25 17:01 | DRG 640 ==
LOC: ERS 07:39 → ERHOLD 09:44 → OBSVTOIN 10:46 → T4-A 12:41 → 2NO 05-15 05:11
PROVIDERS: ADMIT Internal Medicine; ATTEND Internal Medicine
PROC: 0DH63UZ Insertion of Feeding Device into Stomach, Percutaneous Approach (ICD-10-PCS; principal; 2023-05-19)
PROC: 0DB98ZX Excision of Duodenum, Via Natural or Artificial Opening Endoscopic, Diagnostic (ICD-10-PCS; 2023-05-19)
DX: E86.0 Dehydration (principal); E43 Unspecified severe protein-calorie malnutrition; G93.41 Metabolic encephalopathy; J69.0 Pneumonitis due to inhalation of food and vomit; N17.9 Acute kidney failure, unspecified; N39.0 Urinary tract infection, site not specified; Z68.1 Body mass index [BMI] 19.9 or less, adult; E87.0 Hyperosmolality and hypernatremia; E87.1 Hypo-osmolality and hyponatremia; F03.90 Unspecified dementia, unspecified severity, without behavioral disturbance, psychotic disturbance, mood disturbance, and anxiety; E11.22 Type 2 diabetes mellitus with diabetic chronic kidney disease; I12.9 Hypertensive chronic kidney disease with stage 1 through stage 4 chronic kidney disease, or unspecified chronic kidney disease; G70.00 Myasthenia gravis without (acute) exacerbation; Z66 Do not resuscitate; I48.91 Unspecified atrial fibrillation; K22.2 Esophageal obstruction; K26.9 Duodenal ulcer, unspecified as acute or chronic, without hemorrhage or perforation; N18.2 Chronic kidney disease, stage 2 (mild); R13.12 Dysphagia, oropharyngeal phase; Z87.891 Personal history of nicotine dependence; Z91.011 Allergy to milk products; Z79.899 Other long term (current) drug therapy; Z79.82 Long term (current) use of aspirin; Z79.4 Long term (current) use of insulin
CPT/HCPCS: 36415; 36416; 51701; 70450; 71045; 80048; 80053; 81001; 82607; 82805; 83605; 83690; 83735; 84100; 84443; 84484; 85025; 86140; 87040; 87077; 87086; 87186; 88305; 88342; 93005; 93010; 94760; 96361; 96365; 96375; C9113; J0696; J1644; J1815; J2020; J2405; J2543; J2704; J3411; J3490; J7030; J7070; J7120; J7620; J7626